=== PATIENT | female | born 1980 | race Two or more races ===

== ENCOUNTER 2025-10-31 15:21 | Emergency (ER) | payer MEDICAID, SELFPAY ==
[2025-10-31 15:23] VITALS: BMI 31.8
[2025-10-31 15:29] VITALS: BP 149/93; PULSE 80; RESP 18; TEMP 36.7; O2SAT 98; BMI 25.7
--- NOTE | 2025-10-31 15:46 | PD.EDHA ---
ED Headache RME/HPI General Chief Complaint: Headache Stated Complaint: HEAD PAIN, SWELLING AND DIZZINESS X2WK Time Seen by Provider: 10/31/25 15:46 Arrival date/time: 10/31/25 15:21 RME / HPI RME / HPI Narrative: See MDM for Dr. Vargas's HPI documentation. Related Data Previous Rx's ?Medication ?Instructions ?Recorded amoxicillin 875 mg-potassium 1 tab PO BID #20 tabs 10/31/25 clavulanate 125 mg tablet prednisone 20 mg tablet 20 mg PO BID 3 days #6 tabs 10/31/25 Allergies Allergy/AdvReac Type Severity Reaction Status Date / Time NKA Allergy Unknown Uncoded 10/31/25 15:25 Review of Systems Review of Systems Systems Reviewed: All systems reviewed, normal except as documented Past Medical History Social History SMOKING STATUS: Never smoker ED Exam Narrative Physical exam: See [facility] for Dr. Vargas's physical exam documentation. Course Quality Measures none Orders Category Date Time Status Bedside COVID-19 Antigen Test NOW Care 10/31/25 15:46 Completed Bedside Influenza A&B Antigen Test NOW Care 10/31/25 15:46 Completed Saline [Insert IV] NOW Care 10/31/25 15:[address] head/brain wo con Stat Exams 10/31/25 15:47 Completed XR chest 2V Stat Exams 10/31/25 15:47 Completed Bilirubin,Direct Stat Lab 10/31/25 16:18 Completed CBC Stat Lab 10/31/25 16:18 Completed CMP [Comprehensive Metabolic Panel] Stat Lab 10/31/25 16:18 Completed CRP [C-Reactive Protein] Stat Lab 10/31/25 16:18 Completed ESR [Sed Rate (ESR)] Stat Lab 10/31/25 16:18 Completed Hemoglobin A1C [Glycohemoglobin w (eAG)] Stat Lab 10/31/25 16:18 Completed Magnesium Stat Lab 10/31/25 16:18 Completed Procalcitonin Stat Lab 10/31/25 16:18 Completed TSH [Thyroid Stimulating Hormone] Stat Lab 10/31/25 16:18 Completed ACETAMINOPHEN w/COD 300-30 [Tylenol w/Cod #3] Med 10/31/25 15:46 Discontinued 2 tab PO X1 ONE Acetaminophen Tab [Tylenol ES Tab] Med 10/31/25 16:49 Discontinued 1,000 mg PO X1 ONE Amoxicillin/Pot Clav 875 [Augmentin 875] Med 10/31/25 16:49 Discontinued 1 tab PO X1 ONE Ibuprofen Tab [Motrin Tab] Med 10/31/25 16:49 Discontinued 600 mg PO X1 ONE MethylPREDNISolone.* [SoluMEDROL Inj] Med 10/31/25 15:46 Discontinued 125 mg IVP X1 ONE Sodium Chloride 0.9% 1000 ml [Ns] 1,000 ml Med 10/31/25 15:46 Discontinued IV 999 mls/hr Vital Signs Vital signs: Vital Signs Temperature 98.1 F 10/31/25 15:29 Pulse Rate 80 10/31/25 15:29 Respiratory Rate 18 10/31/25 15:29 Blood Pressure 149/93 H 10/31/25 15:29 Pulse Oximetry (%) 98 10/31/25 15:29 Oxygen Delivery Method Room Air 10/31/25 15:29 Pulse ox is 98% on room air which is adequate. Headache MDM Narrative MDM Narrative:: This section includes all my notes and documentations, including HPI, PE, and ED course. Kendrick Vargas MD HPI: 45-year-old female with Lupus here with a couple week history of worsening sinus pressure and headache and congestion with postnasal drip. No fever. No other complaints. ROS: All negative except as documented in HPI. Physical Exam: General: Alert and oriented. Severe sinus congestion noted. Eyes: Conjunctivae and lids clear. PERRL. EOMI. ENT: Maxillary sinus tenderness with palpation. Pharynx normal. TM normal bilaterally. Neck: Supple. Heart: RRR. Lungs: No respiratory distress. Good air movement. No rhonchi, wheezing, rales. Abdomen: Soft and nontender. Skin: Warm and dry. Neuro: Alert and oriented X 3. Cranial nerves II to XII grossly normal. No peripheral motor deficits. I reviewed all diagnostic test results: My interpretation of the chest x-ray is: NAD. My review of the head CT report is NAD. Blood tests are unremarkable. Covid/influenza are negative. At this point, diagnoses include: Sinusitis Treatment here included: IVF Solumedrol 125 mg IV Augmentin 875 mg She felt much better. Recommended a trial of outpatient treatment. Based on my best medical judgment, made decision no further evaluation or treatment indicated at this time. Patient understands and agrees to the discharge instructions customized and printed, see below. Instrucciones de nola del Dr. Vargas (impresas para usted): 1. Tras la evaluaci?n, se le bowling diagnosticado jenny infecci?n sinusal grave. 2. No presenta ninguna afecci?n que ponga en peligro orozco deana. Alanis un derrame cerebral o un tumor cerebral. 3. [place] Augmentin para eliminar los g?rmenes que causan la infecci?n sinusal. 4. La prednisona disminuir? la hinchaz?n/inflamaci?n de los senos paranasales. 5. [place] Tylenol e ibuprofeno seg?n sea necesario para el dolor de ashvin y la fiebre. 6. Consulte con un m?dico particular la pr?xima semana si no se siente completamente mejor. 7. Busque atenci?n m?dica inmediata si wali s?ntomas empeoran o si tiene alguna inquietud. Discharge Instructions from Dr. Vargas printed for you: 1. After evaluation, you have severe sinus infection. 2. There is no life-threatening condition. Such as stroke or brain tumor. 3. Take Augmentin to kill the germs causing your sinus infection. 4. Prednisone will decrease swelling/inflammation in your sinuses. 5. Tylenol and ibuprofen as needed headache and fever. 6. See a private doctor next week if not completely better. 7. Seek immediate medical care with worsening or with any concerns. Kendrick Vargas MD Patient data External records reviewed:: [facility] previous records Clinical information provided by:: patient Social determinants that could affect healthcare access:: none Patient has the following chronic illnesses:: Lupus How is presenting disease/condition affected by chronic disease/condition?: exacerbated by Evaluation data The following diagnostics were reviewed and interpreted by me:: lab results and radiology exam(s) Lab and/or radiology exams considered but not ordered:: None Interpretation Summary: I reviewed all diagnostic test results: My interpretation of the chest x-ray is: NAD. My review of the head CT report is NAD. Blood tests are unremarkable. Covid/influenza are negative. Medications / Prescriptions Medications or Prescriptions considered but not ordered:: None Medication administrations:: Medication Administration History Discontinued Medications Acetaminophen (Acetaminophen 500 Mg Tablet) 1,000 mg PO X1 ONE Stop: 10/31/25 16:50 Last Admin: 10/31/25 17:10 Dose: 1,000 mg Documented By: MORENO Acetaminophen/Codeine Phosphate (Acetaminophen W/Cod 300-30 Tablet) 2 tab PO X1 ONE Stop: 10/31/25 15:47 Last Admin: 10/31/25 16:25 Dose: Not Given Documented By: MORENO Non-Admin Reason: Patient Refused Amoxicillin/Clavulanate Potassium (Amoxicillin/Pot Clav 875 Tablet) 1 tab PO X1 ONE Stop: 10/31/25 16:50 Last Admin: 10/31/25 17:10 Dose: 1 tab Documented By: MORENO Sodium Chloride (Ns) 1,000 mls @ 999 mls/hr IV .Q1H1M ONE Stop: 10/31/25 16:46 Last Admin: 10/31/25 16:22 Dose: 999 mls/hr Documented By: MORENO Ibuprofen (Ibuprofen Tab 600 Mg Tablet) 600 mg PO X1 ONE Stop: 10/31/25 16:50 Last Admin: 10/31/25 17:10 Dose: 600 mg Documented By: MORENO Methylprednisolone Sodium Succinate (Methylprednisolone Sod Succ 62.5 Mg/Ml 2ml Vial) 125 mg IVP X1 ONE Stop: 10/31/25 15:47 Last Admin: 10/31/25 16:22 Dose: 125 mg Documented By: MORENO Treatment here included: IVF Solumedrol 125 mg IV Augmentin 875 mg Consultations Consultation(s) initiated? (list below): No Diagnosis Differential diagnosis headache: migraine, tension headache, subarachnoid hemorrhage, headache and sinusitis Most likely diagnosis given after review of the tests above:: Sinusitis Admission Indicated Admission indicated?: not indicated Explain why admission is indicated or not indicated:: With significant improvement and no condition needing emergent intervention, there was no indication for admission. Admission Request Was there a request for admission?: No Disposition Plan Disposition Plan: Discharge Discharge Attestation Discharge Attestation: The patient and all family members were given an opportunity to ask questions and understood the discharge instructions. Discharge instructions specifically effects, indications for sooner follow up or return to the emergency department, and the expected course of current diagnosis. Patient condition: Stable Discharge Plan Plan Patient Disposition: HOME (Self Care) Prescriptions/Referrals Prescriptions/Med Rec: New prednisone 20 mg tablet 20 mg PO BID 3 Days Qty: 6 0RF Taper: Prednisone Taper 20 mg DAILY for 2 Days and 0 Hour 10 mg DAILY for 2 Days and 0 Hour 5 mg DAILY for 7 Days and 0 Hour amoxicillin-pot clavulanate 875-125 mg tablet 1 tab PO BID Qty: 20 0RF Referrals: No Primary/Family,Physician [Primary Care Provider] - In 1 week Problem List Clinical Impression: Sinusitis Patient/Caregiver Discharge Instructions Discharge Activity: activity as tolerated Education Materials: ED Sinusitis (Antibiotic Treatment) Additional Instructions: Instrucciones de nola del Dr. Vargas (impresas para usted): 1. Tras la evaluaci?n, se le bowling diagnosticado jenny infecci?n sinusal grave. 2. No presenta ninguna afecci?n que ponga en peligro orozco deana. Alanis un derrame cerebral o un tumor cerebral. 3. [place] Augmentin para eliminar los g?rmenes que causan la infecci?n sinusal. 4. La prednisona disminuir? la hinchaz?n/inflamaci?n de los senos paranasales. 5. [place] Tylenol e ibuprofeno seg?n sea necesario para el dolor de ashvin y la fiebre. 6. Consulte con un m?dico particular la pr?xima semana si no se siente completamente mejor. 7. Busque atenci?n m?dica inmediata si wali s?ntomas empeoran o si tiene alguna inquietud. Discharge Instructions from Dr. Vargas printed for you: 1. After evaluation, you have severe sinus infection. 2. There is no life-threatening condition. Such as stroke or brain tumor. 3. Take Augmentin to kill the germs causing your sinus infection. 4. Prednisone will decrease swelling/inflammation in your sinuses. 5. Tylenol and ibuprofen as needed headache and fever. 6. See a private doctor next week if not completely better. 7. Seek immediate medical care with worsening or with any concerns. Print Language: Pashto Stand Alone Forms: Manda Award Info., Patient Portal Info Letter
--- NOTE | 2025-10-31 15:47 | XR_ITS ---
Study: Head CT. INDICATION: Generalized head pain and dizziness. TECHNIQUE: 5 mm slice thickness without contrast axial. 5 mm sagittal and coronal reformats. 3D surface reconstruction of the skull with rotating presentation. 314 images at 1552 hours 31 October 2025. Radiation dose 968 mGy centimeters with dose reduction technique. FINDINGS: The lateral ventricles are normal in size and contour. There is no midline shift, intracranial bleed, mass, cortical edema or parenchymal calcification. The white-zhou junctions are intact. There is no focal lesion of the brainstem or cerebellum. The scalp, skull and mastoid air cells are normal. There is mild mucoperiosteal thickening in the right maxillary sinus. Additional mucoperiosteal thickening is noted in the ethmoid sinus, right greater than left. The nasal airways are patent. Sella turcica volume is normal. There is minimally evident pituitary tissue. Most of the sella is occupied by cerebrospinal fluid. Mild calcific plaque is noted in the right vertebral artery at the level of the foramen magnum. IMPRESSION: 1. No acute diagnostic abnormality of the brain. 2. Reactive right maxillary and ethmoid sinusitis.
--- NOTE | 2025-10-31 15:47 | XR_ITS ---
Study: Chest 2 view. INDICATION: Congestion for 2 weeks. FINDINGS: PA and lateral upright chest radiographs at 1548 hours 31 October 2025 demonstrate fully expanded lungs free from alveolar infiltrates and nodules. There are no effusions. The heart is normal in size and contour. Superior mediastinal structures are narrow and peripheral vessels are normal in volume. IMPRESSION: No acute diagnostic abnormality.
[2025-10-31] MEDS: MethylPREDNISolone SOD SUCC 62.5 MG/ML 2ML VIAL 125 MG IVP (16:22)
[2025-10-31] MEDS: SODIUM CHLORIDE 0.9% 1000 ML 1,000 ML 999 ML IV (16:22)
[2025-10-31 16:30] LABS: Basophils # (Auto) 0.0 Thou/mm3 (0.0-0.2); Basophils % (Auto) 0 % (0-2.5); Eosinophils # (Auto) 0.1 Thou/mm3 (0.0-0.5); Eosinophils % (Auto) 1 % (0-10); Hematocrit 38.1 % (36.0-46.0); Hemoglobin 12.9 g/dL (12.0-16.0); Immature Granulocytes Auto 0.03 Thou/mm3 (0.00-0.00); Lymphocytes # (Auto) 0.9 Thou/mm3 (1.0-4.8); Lymphocytes % (Auto) 11 % (10-50); Mean Corpuscular HGB Conc 33.9 g/dl (31.0-37.0); Mean Corpuscular Hemoglobin 30.9 pg (25.0-35.0); Mean Corpuscular Volume 91 fL (80-100); Monocytes # (Auto) 0.7 Thou/mm3 (0.0-0.8); Monocytes % (Auto) 9 % (0-12); Neutrophils # (Auto) 6.4 Thou/mm3 (1.8-7.7); Neutrophils % (Auto) 78 % (37-80); Nucleated Red Blood Cell # 0.00 Thou/mm3 (0.00-0.00); Nucleated Red Blood Cell % 0 /100 WBC (0); Platelet Count 266 Thou/mm3 (140-440); RDW Standard Deviation 44.0 fL (36.4-46.3); Red Blood Count 4.18 Miln/mm3 (4.00-5.20); White Blood Count 8.1 Thou/mm3 (3.6-11.0)
[2025-10-31 16:45] LABS: Sed Rate (ESR) 13 mm/hr (0-20)
[2025-10-31 16:55] LABS: Alanine Aminotransferase 33 U/L (10-49); Albumin, Serum 4.8 gm/dL (3.5-5.0); Albumin/Globulin Ratio 1.7 (1.2-2.2); Alkaline Phosphatase 86 U/L (46-116); Anion Gap 8 (7-16); Aspartate Amino Transferase 29 U/L (0-34); BUN/Creatinine Ratio 15 Ratio (12-20); Bilirubin,Direct 0.1 mg/dL (0.0-0.3); Bilirubin,Total 0.4 mg/dL (0.3-1.2); Blood Urea Nitrogen 9 mg/dL (9-23); C-Reactive Protein 2.0 mg/dL (0.0-0.9); Calcium 9.2 mg/dL (8.3-10.6); Calcium (Corrected) 9.2 mg/dL (8.5-10.1); Carbon Dioxide 30.6 mMol/L (20.0-31.0); Chloride 105 mMol/L (98-107); Creatinine (Component) 0.6 mg/dL (0.6-1.3); Estimated Creatinine Clearance 120.3 mL/min (>60); Globulin 2.8 gm/dL (2.3-3.5); Glucose 99 mg/dL (74-106); Magnesium 2.0 mg/dL (1.6-2.6); Osmolality,Calculated 285 (275-295); Potassium 4.2 mMol/L (3.4-5.1); Procalcitonin < 0.04 ng/ml (0.0-0.49); Sodium 144 mMol/L (136-145); Thyroid Stimulating Hormone 1.02 uIU/mL (0.55-4.78); Total Protein 7.6 gm/dL (5.7-8.2); eGFR > 60 See Note
[2025-10-31 16:58] LABS: Glucose Estimated Average 100 mg/dL (80-131); Hemoglobin A1C 5.1 % Hgb (4.8-6.0)
[2025-10-31] MEDS: IBUPROFEN TAB 600 MG TABLET PO (17:10)
[2025-10-31] MEDS: AMOXICILLIN/POT CLAV 875 TABLET 1 TAB PO (17:10)
[2025-10-31] MEDS: ACETAMINOPHEN 500 MG TABLET 1000 MG PO (17:10)
== END 2025-10-31 18:08 | disposition home or self-care (01) ==
PROVIDERS: Emergency Provider Emergency Medicine
DX: J32.8 Other chronic sinusitis (principal); R09.89 Other specified symptoms and signs involving the circulatory and respiratory systems
CPT/HCPCS: 36415; 70450; 71046; 80053; 81001; 82248; 83036; 83735; 84145; 84443; 85025; 85652; 86140; 87502; 87635; 96374; 99284; J2919; J7030; A9270; J8499